=== PATIENT | female | born 1990 | race Two or more races ===

== ENCOUNTER 2017-08-15 10:29 | Emergency (ER) | payer OTHER ==
[~2017-08-15] VITALS: Ht 160 cm; Wt 66.5 kg
[~2017-08-15 10:29] MED LIST: DEPO-PROVER150 MG/ML IM; FLINTSTONES GU1 EACH PO; MOTRIN800 MG PO; NAPROSYN500 MG PO; TORADOL10 MG PO; TYLENOL REGULA325 MG PO; ZITHROMAX Z-PA250 MG PO; ZOFRAN ODT4 MG PO; ZOFRAN4 MG PO
[2017-08-15 11:05] LABS: HEMATOCRIT 38.5 % (36.0-46.0); HEMOGLOBIN 12.9 G/DL (11.9-15.5); MCH 28.6 PG (29.0-34.0); MCHC 33.5 G/DL (30.0-36.0); MCV 85.4 FL (83-99); PLATELET COUNT 231 K/uL (156-360); RBC DIS.WIDTH-CV 12.1 % (11.8-14.6); RBC DIS.WIDTH-SD 37.6 % (39-53); RED BLOOD COUNT 4.51 M/uL (3.80-5.20); WHITE BLOOD COUNT 9.2 K/uL (4.1-10.2)
[2017-08-15 11:17] LABS: CHLORIDE 107 mEq/L (99-109); POTASSIUM 3.8 mEq/L (3.7-5.4); SODIUM 141 mEq/L (136-147)
[2017-08-15 11:19] LABS: GLUCOSE 114 mg/dL (70-99)
[2017-08-15 11:22] LABS: CREATININE 0.8 mg/dL (0.6-1.3); GFR ESTIMATE (CALCULATED) > 59 mL/min/
[2017-08-15 11:23] LABS: UREA NITROGEN (BUN) 12 mg/dL (9-23)
[2017-08-15 11:40] LABS: APPEARANCE SL.HAZY ((CLEAR)); BILIRUBIN NEGATIVE; BLOOD LARGE; COLOR YELLOW ((YELLOW)); GLUCOSE (STRIP) NEGATIVE; KETONES 5; LEUKOCYTES NEGATIVE; NITRITE NEGATIVE; PROTEIN (STRIP) 30; SPECIFIC GRAVITY 1.024 (1.000-1.030)
[2017-08-15 11:46] LABS: BACTERIA NONE SEEN /HPF; EPITHELIAL CELLS 1+ /HPF; MUCUS 3+ /LPF; RED BLOOD CELLS TNTC /HPF (0-5); UCUL ADDED? YES; WHITE BLOOD CELLS 0-5 /HPF (0-5)
[2017-08-15] MEDS ORDERED: FLOMAX0.4 MG PO (13:14)
[2017-08-15] MEDS ORDERED: PERCOCET 5/31 TABLET PO (13:14)
[2017-08-15] MEDS ORDERED: MOTRIN600 MG PO (13:14)
[2017-08-15 13:33] LABS: QUANTITATIVE HCG < 4.0 MIU/ML
[2017-08-15 13:43] VITALS: BP 99/58
== END 2017-08-15 13:48 | disposition home or self-care (01) ==
LOC: EME 10:29
DX: N20.0 Calculus of kidney (principal); R11.2 Nausea with vomiting, unspecified; Z87.442 Personal history of urinary calculi; F17.200 Nicotine dependence, unspecified, uncomplicated
CPT/HCPCS: 74176; 80048; 81003; 84702; 85027; 87086; 99281; 99284; J1885

== ENCOUNTER 2017-12-02 10:42 | Emergency (ER) | payer OTHER ==
[~2017-12-02] VITALS: Ht 160 cm; Wt 68.3 kg
[~2017-12-02 10:42] MED LIST changes: +FLOMAX0.4 MG PO; +MOTRIN600 MG PO; +PERCOCET 5/31 TABLET PO
[2017-12-02] MEDS ORDERED: FLONASE16 G1 BOTH NARES (12:54)
[2017-12-02] MEDS ORDERED: GUAIFENESIN600 M1 PO (12:54)
[2017-12-02] MEDS ORDERED: ZYRTEC10 M2 PO (12:54)
[2017-12-02 13:06] VITALS: BP 110/61
== END 2017-12-02 13:07 | disposition home or self-care (01) ==
LOC: EME 10:42
DX: J02.9 Acute pharyngitis, unspecified (principal); J30.2 Other seasonal allergic rhinitis; F17.200 Nicotine dependence, unspecified, uncomplicated; Z71.6 Tobacco abuse counseling
CPT/HCPCS: 87651 90; 99281; 99283